=== PATIENT | male | born 2000 | race Caucasian/White ===

== ENCOUNTER 2020-03-16 21:05 | Emergency (ER) | payer OTHER ==
[2020-03-16 22:42] LABS: Absolute Lymphocytes (CBC) 2.2 K/uL (0.7-4.9); Basophils % 0.3 % (0-1.3); Hematocrit 45.4 % (39.6-49.0); Lymphocytes % 24.8 % (15.3-44.8); MPV 7.8 fL (7.6-11.3); RBC Red Blood Cell Count 5.42 M/uL (4.33-5.43)
[2020-03-16 22:59] LABS: Protime INR 1.12
[2020-03-16 23:06] LABS: Barbiturates NEGATIVE (NEGATIVE); Benzodiazepines NEGATIVE (NEGATIVE); Cocaine NEGATIVE (NEGATIVE); METHAMPHETAM NEGATIVE (NEGATIVE); Methadone NEGATIVE (NEGATIVE); Opiates NEGATIVE (NEGATIVE); Phencyclidine NEGATIVE (NEGATIVE); THC Cannibis NEGATIVE (NEGATIVE)
[2020-03-16 23:09] LABS: Urine Blood NEGATIVE (NEG); Urine Glucose NEGATIVE (NEG); Urine Protein NEGATIVE (NEG)
[2020-03-16 23:16] LABS: Albumin 4.6 g/dL (3.4-5.0); Bilirubin Direct 0.4 mg/dL (0-0.2); Bilirubin Total 2.6 mg/dL (0.2-1.0); Potassium 3.7 mmol/L (3.5-5.1); Protein, Total 8.5 g/dL (6.4-8.2)
--- NOTE | 2020-03-17 01:07 | EDPHYS ---
Physician Documentation [facility] Name: Abundio Amor Age: 19 yrs Sex: Male : 2000 Arrival Date: 03/16/2020 Time: 21:07 Bed 4 Private MD: ED Physician Chuy Lorenz HPI: 03/16 22:43 This 19 yrs old Male presents to ER via Unassigned with complaints of kb Personal. 22:43 The patient has not recently seen a physician. kb 22:43 The patient presents to the emergency department after a known overdose, that was kb intentional. Context: Method: the patient has a confirmed or suspected ingestion, of acetaminophen, Time: at 20:00, Extent: the strength of the pills/capsules is 500 mg(s), the patient had a total ingestion of approximately 4000 mg(s), the OD/poisoning occurred at at home, and was witnessed no one. Associated signs and symptoms: Pertinent positives: anxiety, Pertinent negatives: apnea, auditory hallucinations, burning of skin, decreased level of consciousness, depression, diaphoresis, diarrhea, dizziness, incontinence, loss of consciousness, nausea, palpitations, shortness of breath, tearfulness, visual hallucinations, vomiting. Severity of symptoms: At their worst the symptoms were moderate in the emergency department the symptoms are unchanged. The patient has not experienced similar symptoms in the past. Pt states he took 10-12 extra strength tylenol today and is concerned that he may have taken too many so he is worried about his liver. States he took 2 this morning for a headache, then he took between 6 and 8 at 1999. States he was not trying to harm himself. Reports he had a headache again that is caused by stress and he has had some anxiety so he took the tylenol because that was all he had. . Historical: - Allergies: 23:46 No Known Allergies; mt2 - PMHx: 23:46 None; mt2 - Immunization history:: Adult Immunizations up to date. - Social history:: Smoking status: Patient denies any tobacco usage or history of. ROS: 22:42 Constitutional: Negative for fever, chills, and weight loss, Cardiovascular: Negative kb for chest pain, palpitations, and edema, Respiratory: Negative for shortness of breath, cough, wheezing, and pleuritic chest pain, Abdomen/GI: Negative for abdominal pain, nausea, vomiting, diarrhea, and constipation, Back: Negative for injury and pain, MS/Extremity: Negative for injury and deformity, Skin: Negative for injury, rash, and discoloration, Neuro: Negative for headache, weakness, numbness, tingling, and seizure, Psych: Negative for depression, anxiety, suicide ideation, homicidal ideation, and hallucinations. Exam: 22:42 Constitutional: This is a well developed, well nourished patient who is awake, alert, kb and in no acute distress. Head/Face: Normocephalic, atraumatic. Chest/axilla: Normal chest wall appearance and motion. Nontender with no deformity. No lesions are appreciated. Cardiovascular: Regular rate and rhythm with a normal S1 and S2. No gallops, murmurs, or rubs. Normal PMI, no JVD. No pulse deficits. Respiratory: Lungs have equal breath sounds bilaterally, clear to auscultation and percussion. No rales, rhonchi or wheezes noted. No increased work of breathing, no retractions or nasal flaring. Abdomen/GI: Soft, non-tender, with normal bowel sounds. No distension or tympany. No guarding or rebound. No evidence of tenderness throughout. Skin: Warm, dry with normal turgor. Normal color with no rashes, no lesions, and no evidence of cellulitis. MS/ Extremity: Pulses equal, no cyanosis. Neurovascular intact. Full, normal range of motion. Neuro: Awake and alert, GCS 15, oriented to person, place, time, and situation. Cranial nerves II-XII grossly intact. Motor strength 5/5 in all extremities. Sensory grossly intact. Cerebellar exam normal. Normal gait. Psych: Awake, alert, with orientation to person, place and time. Behavior, mood, and affect are within normal limits. Vital Signs: 23:25 BP 123 / 94; Pulse 83; Resp 16; Pulse Ox 100% ; Pain 0/10; mt2 03/17 00:00 BP 117 / 83; Pulse 81; Resp 16; Pulse Ox 99% on R/A; Pain 0/10; mt2 01:19 BP 122 / 82; Pulse 73; Resp 16; Pulse Ox 100% ; Pain 0/10; mt2 MDM: 03/16 21:50 Patient medically screened. kb 22:42 Data reviewed: vital signs, nurses notes. Data interpreted: Pulse oximetry: on room air kb is 100 %. Interpretation: normal. 23:29 ED course: Poison control contacted by me. Spoke with Aishwarya at the [place] location, linda case #[id number]. Discussed pt condition, history, diagnostic results. Recommended repeat tylenol level 4 hours after ingestion, if less than 150 pt can be discharged home to follow up. Discussed elevated total bilirubin and was told pt can follow up outpatient to have that checked because AST, ALT and ALK are all within normal limits. . 03/17 01:05 Counseling: I had a detailed discussion with the patient and/or guardian regarding: the kb historical points, exam findings, and any diagnostic results supporting the discharge/admit diagnosis, lab results, the need for outpatient follow up, a family practitioner, to return to the emergency department if symptoms worsen or persist or if there are any questions or concerns that arise at home. 03/16 21:59 Order name: Acetaminophen; Complete Time: 23:19 03/16 21:59 Order name: Basic Metabolic Panel; Complete Time: 23:19 03/16 21:59 Order name: CBC with Diff; Complete Time: 22:47 03/16 21:59 Order name: ETOH Level; Complete Time: 22:58 03/16 21:59 Order name: Hepatic Function; Complete Time: 23:19 03/16 21:59 Order name: PT-INR; Complete Time: 23:10 03/16 21:59 Order name: Ptt, Activated; Complete Time: 23:10 03/16 21:59 Order name: Salicylate; Complete Time: 23:23 03/16 21:59 Order name: Urine Drug Screen; Complete Time: 23:10 03/16 21:59 Order name: EKG; Complete Time: 21:59 03/16 21:59 Order name: EKG - Nurse/Tech; Complete Time: 22:30 03/16 21:59 Order name: IV Saline Lock; Complete Time: 22:30 03/16 22:54 Order name: Urine Dipstick--Ancillary (enter results); Complete Time: 23:10 ar5 03/17 00:08 Order name: Acetaminophen; Complete Time: 01:04 kb 03/16 21:59 Order name: Labs collected and sent; Complete Time: 22:30 03/16 21:59 Order name: Urine Dipstick-Ancillary (obtain specimen); Complete Time: 22:30 bb Administered Medications: No medications were administered Disposition: :22 Co-signature as Attending Physician, Chuy Lorenz MD. mh7 Disposition: 03/17/20 01:06 Discharged to Home. Impression: Tylenol overdose - unintentional . - Condition is Stable. - Discharge Instructions: Accidental Overdose, Drug Overdose. - Medication Reconciliation Form, Thank You Letter, Antibiotic Education, Prescription Opioid Use form. - Follow up: Emergency Department; When: As needed; Reason: Worsening of condition. Follow up: Private Physician; When: 2 - 3 days; Reason: Recheck today's complaints, Continuance of care, Re-evaluation by your physician. Signatures: Dispatcher [employer] EDMS Christina Hernandez, ELECTROTHERAPIST-C ELECTROTHERAPIST-Annabelle Rabago RN RN Chuy Lou MD MD 7 Shruthi Floyd RN RN mt2 Corrections: (The following items were deleted from the chart) 01:19 01:06 03/17/2020 01:06 Discharged to Home. Impression: Tylenol overdose - unintentional mt2 . Condition is Stable. Forms are Medication Reconciliation Form, Thank You Letter, Antibiotic Education, Prescription Opioid Use. Follow up: Emergency Department; When: As needed; Reason: Worsening of condition. Follow up: Private Physician; When: 2 - 3 days; Reason: Recheck today's complaints, Continuance of care, Re-evaluation by your physician. kb
--- NOTE | 2020-03-17 01:07 | ER ---
Nurse's Notes [facility] Name: Abundio Amor Age: 19 yrs Sex: Male : 2000 Arrival Date: 03/16/2020 Time: 21:07 Bed 4 Private MD: Diagnosis: Tylenol overdose - unintentional Presentation: 03/16 21:31 Chief complaint: Patient states: "I ACCIDENTALLY TOOK 12 TYLENOL. I DONT WANT TO KILL ls4 MYSELF. BUT I NEED TO KNOW IF I HURT MY LIVER" WHEN ASKED IF HE WANTS TO HURT HIMSELF OR OTHERS PT STATES 'NO'". 21:31 Acuity: RIKA 3 ls4 22:00 Coronavirus screen: Client denies travel out of the [place] in the last 14 days. At this mt2 time, the client does not indicate any symptoms associated with coronavirus-19. Ebola Screen: No symptoms or risks identified at this time. Initial Sepsis Screen: Does the patient meet any 2 criteria? No. Patient's initial sepsis screen is negative. Does the patient have a suspected source of infection? No. Patient's initial sepsis screen is negative. Risk Assessment: Do you want to hurt yourself or someone else? Patient reports no desire to harm self or others. Onset of symptoms was March 16, 2020. 22:00 Method Of Arrival: Ambulatory mt2 Historical: - Allergies: 23:46 No Known Allergies; mt2 - PMHx: 23:46 None; mt2 - Immunization history:: Adult Immunizations up to date. - Social history:: Smoking status: Patient denies any tobacco usage or history of. Screenin:00 Abuse screen: Denies threats or abuse. Nutritional screening: No deficits noted. mt2 Tuberculosis screening: No symptoms or risk factors identified. Fall Risk None identified. Assessment: 22:00 Reassessment: Patient and/or family updated on plan of care and expected duration. Pain mt2 level reassessed. Patient is alert, oriented x 3, equal unlabored respirations, skin warm/dry/pink. Patient denies pain at this time. General: Appears in no apparent distress. comfortable, Behavior is calm, cooperative. Neuro: No deficits noted. Neuro: Reports headache EARLIER TODAY. WAS TAKING TYL FOR PAIN ALL DAY. Cardiovascular: No deficits noted. Respiratory: No deficits noted. GI: No deficits noted. : No deficits noted. EENT: No deficits noted. Derm: No deficits noted. Derm: No deficits noted. 23:00 Reassessment: Patient and/or family updated on plan of care and expected duration. Pain mt2 level reassessed. Patient is alert, oriented x 3, equal unlabored respirations, skin warm/dry/pink. General: Appears in no apparent distress. comfortable, Behavior is calm, cooperative. Pain: Denies pain. 03/17 00:00 Reassessment: Patient and/or family updated on plan of care and expected duration. Pain mt2 level reassessed. Patient is alert, oriented x 3, equal unlabored respirations, skin warm/dry/pink. Patient denies pain at this time. General: Appears in no apparent distress. comfortable, Behavior is calm, cooperative. Vital Signs: 03/16 23:25 BP 123 / 94; Pulse 83; Resp 16; Pulse Ox 100% ; Pain 0/10; mt2 03/17 00:00 BP 117 / 83; Pulse 81; Resp 16; Pulse Ox 99% on R/A; Pain 0/10; mt2 01:19 BP 122 / 82; Pulse 73; Resp 16; Pulse Ox 100% ; Pain 0/10; mt2 ED Course: 03/16 21:07 Patient arrived in ED. cl3 21:10 Christina Hernandez FNP-C is [facility]. kb 21:10 Chuy Lorenz MD is Attending Physician. kb 21:32 Triage completed. ls4 22:00 Arm band placed on right wrist. EKG completed in triage. Results shown to MD. mt2 22:00 Patient has correct armband on for positive identification. Bed in low position. Call mt2 light in reach. Side rails up X 1. site monitor on. Pulse ox on. NIBP on. 22:00 Initial lab(s) drawn, by me, sent to lab. Inserted saline lock: 20 gauge in left mt2 antecubital area, using aseptic technique. Blood collected. 22:08 Shruthi Floyd, RN is Primary Nurse. mt2 23:19 Notified Nurse Practitioner and/or Physician Global Program Director of a critical lab result(s), bb tylenol level of 74.2 Radhika Hernandez DRIVER'S EDUCATION INSTRUCTOR notified. 03/17 01:14 No provider procedures requiring assistance completed. IV discontinued, intact, mt2 bleeding controlled, No redness/swelling at site. Pressure dressing applied. Administered Medications: No medications were administered Outcome: 01:06 Discharge ordered by . linda 01:14 Discharged to home ambulatory. mt2 01:14 Discharged to 01:14 Condition: good 01:14 Discharge instructions given to patient, Instructed on discharge instructions, follow up and referral plans. Demonstrated understanding of instructions, follow-up care. 01:19 Patient left the ED. mt2 Signatures: Christina Hernandez, GARRICK-C CHRONOMETER ASSEMBLER AND ADJUSTER-Annabelle Rabago, RN RN bb Ana Cole, RN RN ls4 Bryce Berry cl3 Shruthi Floyd RN RN mt2
== END 2020-03-17 01:19 | disposition home or self-care (01) ==
LOC: ER 21:05
DX: T39.1X1A Poisoning by 4-Aminophenol derivatives, accidental (unintentional), initial encounter (principal); Y92.9 Unspecified place or not applicable
CPT/HCPCS: 36415; 80048; 80076; 80307; 80320; 80329; 81003; 85025; 85610; 85730; 93005; 99284

== ENCOUNTER 2020-04-06 02:46 | Emergency (ER) | payer OTHER, SELFPAY ==
[2020-04-06 03:57] LABS: Absolute Lymphocytes (CBC) 1.7 K/uL (0.7-4.9); Basophils % 0.3 % (0-1.3); Hematocrit 40.9 % (39.6-49.0); Lymphocytes % 31.8 % (15.3-44.8); MPV 7.9 fL (7.6-11.3); RBC Red Blood Cell Count 4.76 M/uL (4.33-5.43)
[2020-04-06 04:03] LABS: Protime INR 1.12
[2020-04-06 04:19] LABS: Albumin 4.1 g/dL (3.4-5.0); Bilirubin Direct 0.3 mg/dL (0-0.2); Bilirubin Total 4.1 mg/dL (0.2-1.0); Potassium 3.6 mmol/L (3.5-5.1); Protein, Total 7.6 g/dL (6.4-8.2)
[2020-04-06 05:21] LABS: Barbiturates NEGATIVE (NEGATIVE); Benzodiazepines NEGATIVE (NEGATIVE); Cocaine NEGATIVE (NEGATIVE); METHAMPHETAM NEGATIVE (NEGATIVE); Methadone NEGATIVE (NEGATIVE); Opiates NEGATIVE (NEGATIVE); Phencyclidine NEGATIVE (NEGATIVE); THC Cannibis NEGATIVE (NEGATIVE)
[2020-04-06 05:41] LABS: Urine Blood NEGATIVE (NEG); Urine Glucose NEGATIVE (NEG); Urine Protein NEGATIVE (NEG); Urine Specific Gravity 1.025 (1.005-1.030)
--- NOTE | 2020-04-06 08:11 | ER ---
Nurse's Notes [facility] Name: Abundio Amor Age: 19 yrs Sex: Male : 2000 Arrival Date: 04/06/2020 Time: 02:50 Bed 18 Private MD: Diagnosis: Adjustment disorder with depressed mood;Anxiety disorder, unspecified Presentation: 04/06 02:55 Chief complaint: Patient states: Would like to start on antidepressant medication; lp1 states having a panic attack today due to issues with family relationships; States taking Tylenol extra strength today, unknown amount, tonight at 2029. Coronavirus screen: Client denies travel out of the [place] in the last 14 days. At this time, the client does not indicate any symptoms associated with coronavirus-19. Ebola Screen: No symptoms or risks identified at this time. Risk Assessment: Do you want to hurt yourself or someone else? Patient reports no desire to harm self or others. Other: Patient states would like to be on medication to help with anxiety. Onset of symptoms was April 06, 2020. 02:55 Method Of Arrival: Ambulatory lp1 02:55 Acuity: RIKA 3 lp1 03:09 Initial Sepsis Screen: Does the patient meet any 2 criteria? No. Patient's initial lp1 sepsis screen is negative. Does the patient have a suspected source of infection? No. Patient's initial sepsis screen is negative. Historical: - Allergies: 03:01 No Known Allergies; lp1 - Home Meds: 03:01 None [Active]; lp1 - PMHx: 03:01 None; lp1 - PSHx: 03:01 None; lp1 - Immunization history:: Adult Immunizations up to date. - Social history:: Smoking status: Patient denies any tobacco usage or history of. Screenin:54 Abuse screen: Denies threats or abuse. Denies injuries from another. Nutritional lp1 screening: No deficits noted. Tuberculosis screening: No symptoms or risk factors identified. Fall Risk None identified. Assessment: 03:30 General: Appears in no apparent distress. comfortable, well groomed, Behavior is calm, jv1 cooperative, appropriate for age, quiet. Pain: Denies pain. Neuro: Level of Consciousness is awake, alert, obeys commands, Oriented to person, place, time, situation, Appropriate for age Resident Intern are equal bilaterally Moves all extremities. Cardiovascular: Denies chest pain, Heart tones S1 S2 Capillary refill < 3 seconds. Respiratory: Airway is patent Respiratory effort is even, unlabored, Respiratory pattern is regular, symmetrical, Breath sounds are clear bilaterally. GI: Abdomen is flat, non-distended, Bowel sounds present X 4 quads. Abd is soft and non tender X 4 quads. : No signs and/or symptoms were reported regarding the genitourinary system. EENT: No signs and/or symptoms were reported regarding the EENT system. Derm: Skin is intact, is healthy with good turgor, Skin is pink, warm \T\ dry. Musculoskeletal: Circulation, motion, and sensation intact. Capillary refill < 3 seconds. 04:50 Reassessment: Poison Control contacted; Na at [place] [facility] states no lp1 treatment needed for patient's ingestion and lab results; States able to be medically cleared and recommends mental health evaluation. 05:30 Reassessment: Patient appears in no apparent distress at this time. No changes from jv1 previously documented assessment. Patient and/or family updated on plan of care and expected duration. Pain level reassessed. Patient is alert, oriented x 3, equal unlabored respirations, skin warm/dry/pink. pt calm and cooperative. 06:30 Reassessment: Patient appears in no apparent distress at this time. No changes from jv1 previously documented assessment. Patient and/or family updated on plan of care and expected duration. Pain level reassessed. Patient is alert, oriented x 3, equal unlabored respirations, skin warm/dry/pink. 06:40 Reassessment: Patient on Facetime with [facility] at this time. lp1 07:05 General: Appears in no apparent distress. comfortable, Behavior is calm, cooperative. rb1 General: Denies suicidal or homicidal ideations at this time. Pt reports that he just feels tired.. Pain: Denies pain. Neuro: Level of Consciousness is awake, alert, obeys commands, Oriented to person, place, time, situation. Cardiovascular: Patient's skin is warm and dry. Respiratory: Airway is patent Respiratory effort is even, unlabored, Respiratory pattern is regular, symmetrical. Musculoskeletal: Capillary refill < 3 seconds, Range of motion: intact in all extremities. 08:00 Reassessment: Patient appears in no apparent distress at this time. No changes from rb1 previously documented assessment. 08:22 Reassessment: Security brought the pt. belongings. rb1 Psych: 03:15 Subjective: Delusions are denied, Hallucinations are denied Having thoughts of suicide. lp1 Plan for suicide is Patient ingested unknown amount of Tylenol Extra Strength. Objective: Patient is cooperative, Speech is normal, Affect is appropriate. Interventions: Removed personal items and placed in bag. Patient placed in hospital gown. Searched person for dangerous items. Suicide Risk Assessment: Sad Person Scale: Sex of patient: Male: Score 1 point. Age of patient: Score 1 point if patient 15-34. Depression: Score 1 point if signs of depression are present. Previous Attempt: Score 1 point if patient has previously attempted suicide. Substance Abuse: Score 0 point if patient does not abuse alcohol or drugs. Rational Thinking: Score 1 point if patient is lacking rational thinking. Social Support: Score 0 if social support is present/available. Organized Plan: Score 1 point if patient had a plan in place. Relationship: Score 0 point if patient has a spouse or domestic partner. Chronic Sickness: Score 0 point if patient does not have a chronic illness, debilitating, or severe disorder. TOTAL POINTS: If total points are 5-6, proposed clinical action is to strongly consider hospitalization, depending upon confidence in the follow-up arrangement. Implement suicide precautions. Safety Checks: Door is open. No visitors are present at this time. Pt denies substance abuse. Vital Signs: 03:09 BP 127 / 85; Pulse 88; Resp 18; Temp 97.1(TE); Pulse Ox 97% on R/A; Weight 88.45 kg lp1 (R); Height 6 ft. 2 in. (187.96 cm); Pain 0/10; 03:30 BP 127 / 85; Pulse 88; Resp 18; Temp 97.1; Pulse Ox 97% on R/A; Pain 0/10; jv1 04:30 BP 125 / 82; Pulse 89; Resp 18; Temp 97.5; Pulse Ox 98% ; Pain 0/10; jv1 06:30 BP 115 / 63; Pulse 89; Resp 18; Temp 97.6; Pulse Ox 98% ; Pain 0/10; jv1 03:09 Body Mass Index 25.04 (88.45 kg, 187.96 cm) lp1 ED Course: 02:50 Patient arrived in ED. am2 02:53 Chuy Lorenz MD is Attending Physician. mh7 02:54 Arm band placed on right wrist. lp1 02:57 Timur Nunes, RN is Primary Nurse. rr5 02:59 Triage completed. lp1 03:09 Patient has correct armband on for positive identification. lp1 03:45 Inserted saline lock: 20 gauge in right antecubital area, using aseptic technique. lp1 Blood collected. 06:15 Contacted [facility] to request screener to speak to pt. ar5 06:30 Shalis from [facility] called to speak to pt. ar5 07:23 Attending Physician role handed off by Chuy Lorenz MD yolis 07:23 Fili Zendejas MD is Attending Physician. yolis 08:08 Sukumar Poe MD is Referral Physician. yolis 08:21 No provider procedures requiring assistance completed. IV discontinued, intact, rb1 bleeding controlled, No redness/swelling at site. Pressure dressing applied. Administered Medications: No medications were administered Outcome: 08:11 Discharge ordered by . yolis 08:21 Discharged to home ambulatory. rb1 08:21 Condition: stable 08:21 Discharge instructions given to patient, Instructed on discharge instructions, follow up and referral plans. Demonstrated understanding of instructions, follow-up care, Prescriptions given X none 08:27 Patient left the ED. rb1 Signatures: Fili Zendejas MD MD cha Pena, Laura, RN RN lp1 Bambi Holley RN RN rb1 Elizabeth Ariza am2 Kary Will RN RN jv1 Timur Nunes, ESVIN RN 5 Radha Amos [facility] Chuy Lorenz MD MD [facility]
--- NOTE | 2020-04-06 08:11 | EDPHYS ---
Physician Documentation [facility] Name: Abundio Amor Age: 19 yrs Sex: Male : 2000 Arrival Date: 04/06/2020 Time: 02:50 Bed 18 Private MD: ED Physician Fili Zendejas HPI: 04/06 03:17 This 19 yrs old Male presents to ER via Ambulatory with complaints of mh7 Medication Refill. 03:18 The patient presents to the emergency department. mh7 03:19 The patient presents to the emergency department with depression, over a , a mh7 relative of the patient, over a relationship, has had a recent break-up. Onset: The symptoms/episode began/occurred 1 month(s) ago. Past psychiatric history: Prior diagnosis: no previous psychiatric diagnosis known, Psychiatric medications include: none, Primary psychiatric physician: the patient does not have a primary psychiatric physician, the patient has not had a prior suicide gesture, the patient does not have a previous inpatient psychiatric history, the patient's last psychiatric treatment was none. Associated signs and symptoms: Pertinent positives; depression, Pertinent negatives: hallucinations, homicidal ideation, substance abuse. Severity of symptoms: At their worst the symptoms were moderate yesterday, in the emergency department the symptoms have improved moderately. 05:58 Patient reports feeling depressed for about a month. he states that he felt more mh7 depressed when visited his brother's grave site yesterday. He states that he took a handful of Tylenol to help with a headache then went to sleep. When he woke up he was still feeling depressed so he decided to come to the ED to get come medication.. Historical: - Allergies: 03:01 No Known Allergies; lp1 - Home Meds: 03:01 None [Active]; lp1 - PMHx: 03:01 None; lp1 - PSHx: 03:01 None; lp1 - Immunization history:: Adult Immunizations up to date. - Social history:: Smoking status: Patient denies any tobacco usage or history of. ROS: 04:12 Constitutional: Negative for fever, chills, and weight loss, Eyes: Negative for injury, mh7 pain, redness, and discharge, ENT: Negative for injury, pain, and discharge, Neck: Negative for injury, pain, and swelling, Cardiovascular: Negative for chest pain, palpitations, and edema, Respiratory: Negative for shortness of breath, cough, wheezing, and pleuritic chest pain, Abdomen/GI: Negative for abdominal pain, nausea, vomiting, diarrhea, and constipation, Back: Negative for injury and pain, : Negative for injury, bleeding, discharge, and swelling, MS/Extremity: Negative for injury and deformity, Skin: Negative for injury, rash, and discoloration, Neuro: Negative for headache, weakness, numbness, tingling, and seizure, Allergy/Immunology: Negative for hives, rash, and allergies, Endocrine: Negative for neck swelling, polydipsia, polyuria, polyphagia, and marked weight changes, Hematologic/Lymphatic: Negative for swollen nodes, abnormal bleeding, and unusual bruising. Exam: 05:58 Constitutional: This is a well developed, well nourished patient who is awake, alert, mh7 and in no acute distress. Head/Face: Normocephalic, atraumatic. Eyes: Pupils equal round and reactive to light, extra-ocular motions intact. Lids and lashes normal. Conjunctiva and sclera are non-icteric and not injected. Cornea within normal limits. Periorbital areas with no swelling, redness, or edema. Neck: Trachea midline, no thyromegaly or masses palpated, and no cervical lymphadenopathy. Supple, full range of motion without nuchal rigidity, or vertebral point tenderness. No Meningismus. Chest/axilla: Normal chest wall appearance and motion. Nontender with no deformity. No lesions are appreciated. Cardiovascular: Regular rate and rhythm with a normal S1 and S2. No gallops, murmurs, or rubs. Normal PMI, no JVD. No pulse deficits. Respiratory: Lungs have equal breath sounds bilaterally, clear to auscultation and percussion. No rales, rhonchi or wheezes noted. No increased work of breathing, no retractions or nasal flaring. Abdomen/GI: Soft, non-tender, with normal bowel sounds. No distension or tympany. No guarding or rebound. No evidence of tenderness throughout. Back: No spinal tenderness. No costovertebral tenderness. Full range of motion. Skin: Warm, dry with normal turgor. Normal color with no rashes, no lesions, and no evidence of cellulitis. MS/ Extremity: Pulses equal, no cyanosis. Neurovascular intact. Full, normal range of motion. 05:58 Neuro: Awake and alert, GCS 15, oriented to person, place, time, and situation. Cranial nerves II-XII grossly intact. Motor strength 5/5 in all extremities. Sensory grossly intact. Cerebellar exam normal. Normal gait. 05:58 Neuro: 05:58 Psych: Behavior/mood is pleasant, cooperative, depressed, Affect is calm, Oriented to person, place, time, Patient having thoughts of suicide. Denies suicidal plan. Judgement / Insight is normal. Memory is normal. Delusions/hallucinations are not present. Vital Signs: 03:09 BP 127 / 85; Pulse 88; Resp 18; Temp 97.1(TE); Pulse Ox 97% on R/A; Weight 88.45 kg lp1 (R); Height 6 ft. 2 in. (187.96 cm); Pain 0/10; 03:30 BP 127 / 85; Pulse 88; Resp 18; Temp 97.1; Pulse Ox 97% on R/A; Pain 0/10; jv1 04:30 BP 125 / 82; Pulse 89; Resp 18; Temp 97.5; Pulse Ox 98% ; Pain 0/10; jv1 06:30 BP 115 / 63; Pulse 89; Resp 18; Temp 97.6; Pulse Ox 98% ; Pain 0/10; jv1 03:09 Body Mass Index 25.04 (88.45 kg, 187.96 cm) lp1 MDM: 03:16 Patient medically screened. [facility] 07:04 Differential diagnosis: depression, Suicidal Ideation, Acetaminophen Overdose. Data [facility] reviewed: vital signs, nurses notes, lab test result(s), CBC, drug level(s), acetaminophen, alcohol, salicylate, electrolytes, urinalysis, urine drug screen, EKG. Data interpreted: Pulse oximetry: on room air is 98 %. Interpretation: normal. 07:23 Patient medically screened. [facility] 04/06 03:17 Order name: Acetaminophen; Complete Time: 05:14 [facility] 04/06 03:17 Order name: Basic Metabolic Panel; Complete Time: 05:14 [facility] 04/06 03:17 Order name: CBC with Diff; Complete Time: 05:14 [facility] 04/06 03:17 Order name: ETOH Level; Complete Time: 05:14 [facility] 04/06 03:17 Order name: Hepatic Function; Complete Time: 05:14 04/06 03:17 Order name: PT-INR; Complete Time: 05:14 04/06 03:17 Order name: Ptt, Activated; Complete Time: 05:14 04/06 03:17 Order name: Salicylate; Complete Time: 05:14 04/06 03:17 Order name: Urine Drug Screen; Complete Time: 06:08 04/06 03:17 Order name: EKG; Complete Time: 03:17 [facility] 04/06 03:17 Order name: EKG - Nurse/Tech; Complete Time: 04:07 [facility] 04/06 03:17 Order name: IV Saline Lock; Complete Time: 04:07 [facility] 04/06 05:37 Order name: Urine Dipstick--Ancillary (enter results); Complete Time: 06:08 [facility] 04/06 07:49 Order name: Diet Finger Food; Complete Time: 07:49 [facility] 04/06 03:17 Order name: Labs collected and sent; Complete Time: 04:07 [facility] 04/06 03:17 Order name: Urine Dipstick-Ancillary (obtain specimen); Complete Time: 05:07 [facility] Administered Medications: No medications were administered Disposition: 04/06/20 08:11 Discharged to Home. Impression: Adjustment disorder with depressed mood, Anxiety disorder, unspecified. - Condition is Stable. - Discharge Instructions: Adjustment Disorder, Adult, Panic Attacks, Panic Attacks, [id number]. - Medication Reconciliation Form, Thank You Letter, Antibiotic Education, Prescription Opioid Use, SBAR form form. - Follow up: Private Physician; When: 2 - 3 days; Reason: Recheck today's complaints, Continuance of care, Re-evaluation by your physician. Follow up: Sukumar Poe MD; When: 2 - 3 days; Reason: Recheck today's complaints, Re-evaluation by your physician. - Problem is new. - Symptoms have improved. Signatures: Dispatcher [employer] EDFili Shoemaker MD MD cha Pena, Laura RN RN lp1 Bambi Holley RN RN rb1 Chuy Lorenz MD MD 7 Corrections: (The following items were deleted from the chart) 08:11 08:11 04/06/2020 08:11 Discharged to Home. Impression: Adjustment disorder with yolis depressed mood. Condition is Stable. Forms are SBAR form, Medication Reconciliation Form, Thank You Letter, Antibiotic Education, Prescription Opioid Use. Follow up: Private Physician; When: 2 - 3 days; Reason: Recheck today's complaints, Continuance of care, Re-evaluation by your physician. Follow up: Sukumar Poe; When: 2 - 3 days; Reason: Recheck today's complaints, Re-evaluation by your physician. Problem is new. Symptoms have improved. yolis 08:27 08:11 04/06/2020 08:11 Discharged to Home. Impression: Adjustment disorder with rb1 depressed mood; Anxiety disorder, unspecified. Condition is Stable. Discharge Instructions: Adjustment Disorder, Adult. Forms are SBAR form, Medication Reconciliation Form, Thank You Letter, Antibiotic Education, Prescription Opioid Use. Follow up: Private Physician; When: 2 - 3 days; Reason: Recheck today's complaints, Continuance of care, Re-evaluation by your physician. Follow up: Sukumar Poe; When: 2 - 3 days; Reason: Recheck today's complaints, Re-evaluation by your physician. Problem is new. Symptoms have improved. yolis
[2020-04-06 08:37] VITALS: O2SAT 98
[2020-04-06 08:38] VITALS: BP 115/63; TEMP 97.6
== END 2020-04-06 08:27 | disposition home or self-care (01) ==
LOC: ER 02:46
DX: F43.23 Adjustment disorder with mixed anxiety and depressed mood (principal)
CPT/HCPCS: 36415; 80048; 80076; 80307; 80320; 80329; 81003; 85025; 85610; 85730; 93005; 99284